=== PATIENT | female | born 1945 | race Caucasian/White ===

== ENCOUNTER 2019-07-27 11:12 | Inpatient (IN) | payer OTHER, MEDICAID ==
[~2019-07-27] VITALS: Ht 160.8 cm; Wt 86.2 kg
[2019-07-27 11:12] VITALS: BP_SYST 140
--- NOTE | 2019-07-27 11:12 | NUR ---
Placed in room 1 . Placed on hospital internship, blood pressure machine and pulse oximeter. To gown for exam. Side rails up.
--- NOTE | 2019-07-27 11:13 | NUR ---
Patient was brought in via EMS. Patient called 911 from home due to SOB. Patient states it is hard to breath, she came in on NRB mask. Patient states that she has had a cold x2 weeks.
--- NOTE | 2019-07-27 11:15 | NUR ---
KRISTA Bermudez at bedside examining patient.
[2019-07-27 12:19] LABS: BASOPHILS % (AUTO) 0.7 % (0.0-2.0); EOSINOPHILS # (AUTO) 0.2 K/uL (0.0-0.4); HEMATOCRIT 32.7 % (36-48); HEMOGLOBIN 10.8 g/dL (12.0-16.0); LYMPHOCYTES # (AUTO) 0.6 K/uL (1.0-5.5); LYMPHOCYTES % (AUTO) 8.6 % (20.5-51.5); MEAN CORPUSCULAR HEMOGLOBIN 31 pg (27-31); MEAN CORPUSCULAR HGB CONC 33 % (32-36); MEAN CORPUSCULAR VOLUME 96 fL (79.0-98.0); MONOCYTES # (AUTO) 0.3 K/uL (0.0-1.0); MONOCYTES % (AUTO) 4.1 % (1.7-9.3); NEUTROPHILS # (AUTO) 6.1 K/uL (1.8-7.7); NEUTROPHILS % (AUTO) 83.6 % (40.0-70.0); PLATELET COUNT (AUTO) 162 K/uL (130-430); RED BLOOD CELL COUNT(AUTO) 3.43 MIL/uL (4.2-6.2); RED CELL DISTRIBUTION WIDTH 16.4 % (9.0-15.0); WHITE BLOOD COUNT (AUTO) 7.2 K/uL (4.8-10.8)
[2019-07-27 12:32] LABS: ANION GAP 9 (5-15); CALCIUM 8.7 mg/dL (8.4-11.0); CHLORIDE 101 mmol/L (98-107); CREATININE 5.14 mg/dL (0.55-1.30); GLUCOSE 136 mg/dL (70-99); POTASSIUM 4.9 mmol/L (3.5-5.1); SODIUM SERUM 138 mmol/L (136-145); UREA NITROGEN, BLOOD 88 mg/dL (8-21)
[2019-07-27 12:40] LABS: ALANINE AMINOTRANSFERASE 31 U/L (12-78); ALBUMIN 3.3 g/dL (3.4-4.8); ASPARTATE AMINOTRANSFERASE 33 U/L (10-37); TOTAL BILIRUBIN 0.5 mg/dL (0.0-1.0)
[2019-07-27 12:45] LABS: INR 1.2 (0.8-1.2); PROTHROMBIN TIME 11.8 SECS (9.5-12.5)
--- NOTE | 2019-07-27 12:56 | NUR ---
Durga starks in [facility] - 07/27/19 at 1256 by YARELINPAUL Unable to obtain medication list.
--- NOTE | 2019-07-27 12:57 | NUR ---
Unable to obtain medication list.
[2019-07-27 13:24] LABS: BILIRUBIN,URINE NEGATIVE (NEGATIVE); BLOOD, URINE 1+ (NEGATIVE); CLARITY/URINE CLEAR (CLEAR); COLOR,URINE YELLOW (YELLOW); GLUCOSE,URINE NEGATIVE (NEGATIVE); KETONES,URINE NEGATIVE (NEGATIVE); LEUKOCYTE ESTERASE ,URINE NEGATIVE (NEGATIVE); NITRITE, URINE NEGATIVE (NEGATIVE); PH,URINE 6.5 (5.0-8.0); PROTEIN URINE 2+ (NEGATIVE); UROBILINOGEN,URINE 0.2 (0.2-1.0)
[2019-07-27 13:30] LABS: BACTERIA,URINE RARE /HPF (None Seen); MUCUS,URINE 1+ /LPF (None Seen); RBC,URINE 0-3 /HPF (0-3); WBC,URINE 0-3 /HPF (0-3)
--- NOTE | 2019-07-27 15:03 | NUR ---
Patient will be admitted to care of Dr. Ramesh. Admitted to telemetry unit. Will go to room 102B. Belongings list completed. Complete and up to date summary report printed. SBAR report to be given at bedside with opportunity for questions.
--- NOTE | 2019-07-27 15:10 | NUR ---
Transfer to [facility] via ACLS protocol. Licensed nurse present. IV present no signs or symptoms of infiltration.
[2019-07-27 15:16] VITALS: BP_SYST 164
--- NOTE | 2019-07-27 15:16 | NUR ---
ADMISSION: Received from ER on a gurney with the diagnosis of Pulmonary Edema. Patient is oriented x4. Ambulatory with steady gait with SOB on exertion. Oriented to room. Call light within reach.
--- NOTE | 2019-07-27 15:57 | NUR ---
INITIAL NOTES: RECEIVED REPORT FROM RAQUEL RESOURCE NURSE.PATIENT ON THE BED,AWAKE,ALERT AND ORIENTED X4. WITH O2 3L/NC.LEFT AV SHUNT.RIGHT HAND IV SALINE KORI IN PLACE. ORIENTED TO CALL LIGHT. BED LOCKED AT LOWEST POSITION. INITIAL ASSESSMENT DONE. NOT IN ANY RESPIRATORY DISTRESS.TELEMETRY SINUS RHYTHM.
--- NOTE | 2019-07-27 16:10 | NUR ---
CONSULTATION PAGED/CALLED Reason for Consultation: HD Person Who was Notified: EXCHANGE Consulting Physician: Beekeeper Farmer Specialty: Ordering Physician:
--- NOTE | 2019-07-27 16:18 | NUR ---
LYNETTE CALLED BACK: SPOKE WITH DR WARREN WITH ORDERS FOR HD NOW THEN CARRERA TO CALL FOR ORDERS.
--- NOTE | 2019-07-27 18:35 | NUR ---
END OF SHIFT: PATIENT COMFORTABLE THIS TIME. STILL ON O2 3L/NC,GOOD SATURATION. DNR. CALL LIGHT WITH IN REACH. BED LOCKED AT LOWEST POSITION. SAFETY MEASURES RENDERED. HD ORDER COPY GIVEN TO MUSIC THERAPY SPECIALIST.WAITING FOR DIALYSIS NURSE TO COME. NOT IN ANY DISTRESS.
--- NOTE | 2019-07-27 19:30 | NUR ---
Opening note Received patient, resting in bed, awake, AOX4. Nonlabored breathing on 3L NC. IV is SL to right hand. Side rails up 2x, bed is locked in lowest position. She refused bed alarm and states she ambulates to restroom with her walker without assistance. She demonstrates use of call light. Updated board and reviewed plan of care.
[2019-07-27 20:00] VITALS: BP_SYST 139
[2019-07-27] MEDS ORDERED: ALBUTEROL SULFATE 0.083% 2.5 MG/3 ML VIAL.NEB INH PRN (20:00)
[2019-07-27] MEDS ORDERED: IPRATROPIUM BROM 0.5 MG/2.5 ML VIAL.NEB (ATROVENT) INH PRN (20:00)
[2019-07-27] MEDS ORDERED: INSULIN REGULAR, HUMAN 100 UNITS/ML, 10 ML VIAL (humuLIN R) SUBCUT PRN (20:00)
[2019-07-27] MEDS ORDERED: DEXTROSE 50% JECT 50 ML DISP.SYRIN IVP PRN (20:00)
--- NOTE | 2019-07-27 20:03 | NUR ---
Hemodialysis HD nurse arrived and is setting up patient for HD.
[2019-07-27 20:58] VITALS: BP_SYST 164
--- NOTE | 2019-07-27 22:11 | NUR ---
RN rounds HD in progress; HD nurse reports patient is tolerating. Fingerstick BG test done w/ result of 130 mg/dL; no coverage due. Will continue to monitor.
--- NOTE | 2019-07-27 23:24 | NUR ---
HD complete Received report from FRED Alexander. 2L out. Presently v/s are B/P 164/70 HR 76, SpO2 98% on 3.5L oxygen. Addendum: 07/28/19 at 0114 by Keke Rhodes RN correction on entry above: 3L out, not 2L as written above.
[2019-07-27] MEDS: IPRATROPIUM BROM 0.5 MG/2.5 ML VIAL.NEB (ATROVENT) INH SCH (23:30)
[2019-07-27] MEDS: ALBUTEROL SULFATE 0.083% 2.5 MG/3 ML VIAL.NEB INH SCH (23:30)
--- NOTE | 2019-07-28 00:04 | NUR ---
Fingerstick BGT Fingerstick BG test done w/ result of 80 mg/dL; no coverage due. Patient provided with snack; 2 packs of jitendra crackers and no sugar gelatin. Will continue to monitor.
[2019-07-28 00:15] VITALS: BP_SYST 159
--- NOTE | 2019-07-28 01:42 | NUR ---
Breathing treatment Patient is sitting on chair at bedside and said she can breath better if she sits upright. I let her know she has breathing treatments and called the RT. Rt at bedside with patient for breathing treatment.
--- NOTE | 2019-07-28 04:00 | NUR ---
Resting Patient resting w/ eyes closed. Symmetrical rise and fall of chest nonlabored breathing. Call light w/in reach.
[2019-07-28 05:15] VITALS: BP_SYST 147
--- NOTE | 2019-07-28 05:35 | NUR ---
Fingerstick BGT Fingerstick BG test done w/ result of 95 mg/dL; no coverage due. Daily weight taken. Patient has no further needs. Call light w/in reach. Will continue to monitor.
--- NOTE | 2019-07-28 07:35 | NUR ---
closing note Endorsed report. Patient resting in comfortable position, no s/sx of distress. Nonlabored breathing on 3.5L NC. Presently denies pain.
[2019-07-28 08:00] VITALS: BP_SYST 144
[2019-07-28] MEDS: IPRATROPIUM BROM 0.5 MG/2.5 ML VIAL.NEB (ATROVENT) INH SCH ×3 (08:21→19:50)
[2019-07-28] MEDS: ALBUTEROL SULFATE 0.083% 2.5 MG/3 ML VIAL.NEB INH SCH ×3 (08:21→19:50)
--- NOTE | 2019-07-28 10:00 | NUR ---
patient unable to provide home meds list. refer me to call [phone] [facility] Pharmacist Char and get list of meds patient had in July 16, 2019. I spoke to Char on phone and list of home meds obtained. i entered to med reconciliation. I spoke to PMD Dr. Pickett at 10:15. Dr. Pickett said he will review them.
[2019-07-28] MEDS ORDERED: [UNRECOGNIZED DRUG - CODE] (10:01)
[2019-07-28] MEDS ORDERED: FOLI0.8T41 PO (10:01)
[2019-07-28] MEDS ORDERED: VERA120C2 PO (10:01)
[2019-07-28] MEDS ORDERED: ROSU10TA2 PO (10:01)
[2019-07-28] MEDS ORDERED: FAMO20TA8 PO (10:01)
[2019-07-28] MEDS ORDERED: PRO20 PO (10:01)
[2019-07-28] MEDS ORDERED: APIX2.5T PO (10:01)
[2019-07-28 12:00] VITALS: BP_SYST 130
--- NOTE | 2019-07-28 13:29 | NUR ---
Cardiac consult called: for Dr. Bishop, regarding CHF, ordered by Dr. Ramesh, spoke with
--- NOTE | 2019-07-28 14:00 | NUR ---
EF:20-25%, DIOR NEVAREZ NOTIFIED AT 13:45 , TO OBTAINED CARDIOLOGY VIANCA NEVAREZ. PATIENT WAS INFORMED.
--- NOTE | 2019-07-28 19:30 | NUR ---
Opening note Received patient, sitting in chair, awake, AOX4. Nonlabored breathing on 2L NC. IV is SL to right hand. Side rails up 2x, bed is locked in lowest position. She refused bed alarm and demonstrates use of call light. Updated board and reviewed plan of care.
[2019-07-28 20:00] VITALS: BP_SYST 144
--- NOTE | 2019-07-28 21:51 | NUR ---
Dr. Garrett S/W Dr. Garrett and informed patient medication list has been updated and she has not received her medications; not reconciled. She has not taken blood pressure meds. She asked what is blood pressure and I informed 144/80 and she said don't worry about it.
--- NOTE | 2019-07-28 22:30 | NUR ---
RN rounds Patient resting in bed, no s/sx of distress. She is watching t.v. Nonlabored breathing.
--- NOTE | 2019-07-28 23:09 | NUR ---
Assumed nursing care of pt from nurse Davies.
--- NOTE | 2019-07-28 23:14 | NUR ---
SBAR report Enorsed care and gave SBAR report to FRED Alvarez
[2019-07-28 23:50] VITALS: BP_SYST 122
--- NOTE | 2019-07-29 01:22 | NUR ---
Accucheck 94. Skin warm and dry to touch. Pt declines snacks. Fall and safety precautions are in place.
--- NOTE | 2019-07-29 03:00 | NUR ---
Pt is sleeping without any respiratory distress noted. Fall and safety precautions are in place.
--- NOTE | 2019-07-29 05:00 | NUR ---
Pt is awake and sitting up in a chair at the bedside. Pt stated she took a long nap in the afternoon. No c/o pain or discomfort.
--- NOTE | 2019-07-29 06:25 | NUR ---
All pt's needs were attended to. Pt is resting quietly in bed. Accucheck 99 this AM and no Insulin coverage needed. Skin remains warm and dry to touch. Saline lock in right hand is without any signs of infiltration. Fall and safety precautions are in place. Will endorse to day shift nurse.
[2019-07-29] MEDS: ALBUTEROL SULFATE 0.083% 2.5 MG/3 ML VIAL.NEB INH SCH ×3 (07:36→14:54)
[2019-07-29] MEDS: IPRATROPIUM BROM 0.5 MG/2.5 ML VIAL.NEB (ATROVENT) INH SCH ×5 (07:37→23:40)
[2019-07-29 08:00] VITALS: BP_SYST 159
--- NOTE | 2019-07-29 09:00 | NUR ---
HD START 0800 THIS MORNING/
[2019-07-29] MEDS ORDERED: APIXABAN 2.5 MG TABLET PO ONE (09:30)
[2019-07-29] MEDS ORDERED: FLUoxetine HCL 20 MG CAPSULE (PROzac) PO ONE (09:30)
[2019-07-29] MEDS ORDERED: VERAPAMIL HCL 120 MG TABLET.SA PO ONE (09:30)
[2019-07-29] MEDS ORDERED: NEPHROVITE, (FOLIC ACID/VITAMIN B COMP W-C 1 TAB) PO ONE (09:30)
--- NOTE | 2019-07-29 10:33 | NUR ---
Nutrition Update Harjinder Scale 18 noted. Pt admitted for pulmonary edema. Diet: renal BMI: 33.7 kg/m2 RD to follow per nutrition care standards.
[2019-07-29 12:00] VITALS: BP_SYST 158
--- NOTE | 2019-07-29 15:27 | NUR ---
Dietitian Recommendations * Recommend renal, [facility] JAYA, RD Please refer to Nutrition Assessment for details. Addendum: 07/29/19 at [address] Amended: Links added.
--- NOTE | 2019-07-29 19:30 | NUR ---
Opening notes Received report. Patient is sitting in chair eating dinner. No signs of distress noted. Breathing even and unlabored. IV patent and intact, no signs of infiltration noted. CHARITO AV shunt noted. No needs at this time. Informed patient to call for help when she wants to get back into bed. Call light with the patient. Safety precautions in place.
[2019-07-29] MEDS: LevALBUTEROL HCL 1.25 MG/0.5 ML *CONC.* VIAL.NEB (XOPENEX CONC.) INH SCH ×2 (20:24→23:00)
[2019-07-29] MEDS: VERAPAMIL HCL 120 MG TABLET.SA PO SCH (21:50)
[2019-07-29 21:51] VITALS: BP_SYST 128
[2019-07-29] MEDS: APIXABAN 2.5 MG TABLET PO SCH (21:51)
--- NOTE | 2019-07-29 21:55 | NUR ---
Medications given. Educated the action and side effects of medications. Patient verbalized understanding and tolerated well. No other needs at this time. Call light with the patient. Safety precautions in place.
[2019-07-29 23:53] VITALS: BP_SYST 139
--- NOTE | 2019-07-30 | NUR ---
Accucheck 107 No insulin coverage necessary. Provided patient with blanket. No other needs. Call light with the patient. Safety precautions in place.
--- NOTE | 2019-07-30 02:09 | NUR ---
Sleeping No signs of distress noted. Breathing even and unlabored. No needs. Call light with the patient. Safety precautions in place.
[2019-07-30] MEDS: LevALBUTEROL HCL 1.25 MG/0.5 ML *CONC.* VIAL.NEB (XOPENEX CONC.) INH SCH ×2 (03:00→08:11)
[2019-07-30] MEDS: IPRATROPIUM BROM 0.5 MG/2.5 ML VIAL.NEB (ATROVENT) INH SCH ×2 (03:00→08:11)
--- NOTE | 2019-07-30 04:00 | NUR ---
Resting Patient sitting in chair watching TV. No signs of distress noted. Breathing even and unlabored. Informed patient to call for help when ready to get back into bed. Call light with the patient. Safety precautions in place.
--- NOTE | 2019-07-30 04:10 | NUR ---
BT INITIATION: 3rd Unit Consent signed per patient agreeing to administration of blood. Blood has been type and crossmatched. Blood sent from blood bank. Information on unit of blood checked against patient wristband at bedside by two nurses. All information matches. Patient or responsible libertarian informed of potential complications associated with blood transfusion. Informed of possible transfusion reaction symptoms. Aware of need to notify nurse at once of itching, shortness of breath, flushing, feeling of impending doom, or other symptoms not previously present. Vital signs taken within 5 minutes prior to initiation of transfusion. RN will remain with patient for first 15 minutes of transfusion at which time vital signs will be re-assessed. Addendum: 07/30/19 at 0413 by Amna Wright RN WRONG PATIENT, PLEASE DISREGARD.
--- NOTE | 2019-07-30 06:29 | NUR ---
Closing notes Patient is sitting in chair. No signs of distress noted. Breathing even and unlabored. IV patent and intact, no signs of infiltration noted. CHARITO AV shunt in place. Accucheck 117. No insulin necessary. All needs met throughout the shift. Call light with the patient. Safety precautions in place. Will endorse care to day shift RN.
[2019-07-30 07:51] VITALS: BP_SYST 136
[2019-07-30] MEDS: APIXABAN 2.5 MG TABLET PO SCH (08:07)
[2019-07-30] MEDS: VERAPAMIL HCL 120 MG TABLET.SA PO SCH (08:08)
[2019-07-30] MEDS ORDERED: ATORVASTATIN 20 MG TABLET PO SCH (09:00)
[2019-07-30] MEDS ORDERED: FLUoxetine HCL 20 MG CAPSULE (PROzac) PO SCH (09:00)
[2019-07-30] MEDS ORDERED: FAMOTIDINE 20 MG TABLET PO SCH (09:00)
[2019-07-30] MEDS ORDERED: NEPHROVITE, (FOLIC ACID/VITAMIN B COMP W-C 1 TAB) PO SCH (09:00)
--- NOTE | 2019-07-30 09:20 | NUR ---
Seen and examined by Dr. Patterson no shortness of breath oxygen saturation on room 95% , with clearance to discharge home today.
[2019-07-30 09:40] VITALS: BP_SYST 128
--- NOTE | 2019-07-30 10:30 | NUR ---
D/C Patient Patient given medication reconciliation form and D/C instructions. Exit Care provided. Patient verbalized understanding. MD discussed with patient the results and treatment provided. Ambulatory with FWW gait for discharge to home. Patient in stable condition, ID band removed. IV catheter removed, intact and dressing applied, no active bleeding. All belongings sent with patient.
--- NOTE | 2019-07-30 12:30 | NUR ---
Discharged home via taxi provided by the hospital , with all the belongings take.
== END 2019-07-30 12:30 | disposition home or self-care (01) | DRG 291 ==
LOC: SED 11:12 → STU 14:00 → UNDODISIN 07-30 10:30
PROVIDERS: ADMIT Internal Medicine Hospice and Palliative Medicine; ATTEND Internal Medicine Hospice and Palliative Medicine
PROC: 5A1D70Z Performance of Urinary Filtration, Intermittent, Less than 6 Hours Per Day (ICD-10-PCS; principal; 2019-07-27)
PROC: 5A1D70Z Performance of Urinary Filtration, Intermittent, Less than 6 Hours Per Day (ICD-10-PCS; 2019-07-29)
DX: I13.2 Hypertensive heart and chronic kidney disease with heart failure and with stage 5 chronic kidney disease, or end stage renal disease (principal); N18.6 End stage renal disease; I50.23 Acute on chronic systolic (congestive) heart failure; E87.70 Fluid overload, unspecified; E66.9 Obesity, unspecified; E78.5 Hyperlipidemia, unspecified; E11.22 Type 2 diabetes mellitus with diabetic chronic kidney disease; Z96.659 Presence of unspecified artificial knee joint; Z60.2 Problems related to living alone; R09.02 Hypoxemia; D64.9 Anemia, unspecified; I08.1 Rheumatic disorders of both mitral and tricuspid valves; Z91.19 Patient's noncompliance with other medical treatment and regimen; Z91.15 Patient's noncompliance with renal dialysis; Z99.2 Dependence on renal dialysis; Z85.038 Personal history of other malignant neoplasm of large intestine; Z90.710 Acquired absence of both cervix and uterus; Z68.33 Body mass index [BMI] 33.0-33.9, adult; Z79.899 Other long term (current) drug therapy
CPT/HCPCS: 36415; 36600; 71045; 80053; 81000-TC; 82803-TC; 82962; 83605; 83880; 84484; 85025; 85610-TC; 85730-TC; 86710; 87040-TC; 87081; 87086; 90935; 90937; 93005; 93306; 94640; 94760; 99285; G0378; J1815; J7030; J7612; J7613

== ENCOUNTER 2019-09-02 21:21 | Inpatient (IN) | payer OTHER, MEDICAID ==
[~2019-09-02] VITALS: Ht 160 cm; Wt 83.0 kg
[~2019-09-02 21:21] MED LIST: APIX2.5T PO; FAMO20TA8 PO; FOLI0.8T41 PO; PRO20 PO; ROSU10TA2 PO; VERA120C2 PO; [UNRECOGNIZED DRUG - CODE]
[2019-09-02 21:25] VITALS: BP_SYST 151
--- NOTE | 2019-09-02 22:19 | NUR ---
Placed in room 6 . Placed on monitoring coordinator, blood pressure machine and pulse oximeter. To gown for exam. Side rails up. Report given to CIRA IBARRA.
[2019-09-02 22:32] LABS: BASOPHILS # (AUTO) 0.1 K/uL (0.0-0.2); BASOPHILS % (AUTO) 1.1 % (0.0-2.0); EOSINOPHILS # (AUTO) 0.1 K/uL (0.0-0.4); EOSINOPHILS % (AUTO) 2.1 % (0.0-4.0); HEMATOCRIT 30.7 % (36-48); HEMOGLOBIN 10.1 g/dL (12.0-16.0); LYMPHOCYTES # (AUTO) 0.7 K/uL (1.0-5.5); LYMPHOCYTES % (AUTO) 13.7 % (20.5-51.5); MEAN CORPUSCULAR HEMOGLOBIN 31 pg (27-31); MEAN CORPUSCULAR HGB CONC 33 % (32-36); MEAN CORPUSCULAR VOLUME 96 fL (79.0-98.0); MONOCYTES # (AUTO) 0.5 K/uL (0.0-1.0); MONOCYTES % (AUTO) 8.5 % (1.7-9.3); NEUTROPHILS # (AUTO) 4.1 K/uL (1.8-7.7); NEUTROPHILS % (AUTO) 74.6 % (40.0-70.0); PLATELET COUNT (AUTO) 102 K/uL (130-430); RED BLOOD CELL COUNT(AUTO) 3.21 MIL/uL (4.2-6.2); RED CELL DISTRIBUTION WIDTH 15.9 % (9.0-15.0); WHITE BLOOD COUNT (AUTO) 5.4 K/uL (4.8-10.8)
--- NOTE | 2019-09-02 22:33 | NUR ---
radiology at bedside.
[2019-09-02 22:42] LABS: ANION GAP 11 (5-15); CHLORIDE 105 mmol/L (98-107); CREATININE 4.41 mg/dL (0.55-1.30); GLUCOSE 133 mg/dL (70-99); POTASSIUM 5.2 mmol/L (3.5-5.1); SODIUM SERUM 137 mmol/L (136-145); UREA NITROGEN, BLOOD 75 mg/dL (8-21)
[2019-09-02 22:44] LABS: INR 1.2 (0.8-1.2); PROTHROMBIN TIME 11.6 SECS (9.5-12.5)
[2019-09-02 22:59] LABS: ALANINE AMINOTRANSFERASE 11 U/L (12-78); ALBUMIN 3.2 g/dL (3.4-4.8); ASPARTATE AMINOTRANSFERASE 15 U/L (10-37); TOTAL BILIRUBIN 0.5 mg/dL (0.0-1.0)
--- NOTE | 2019-09-02 23:05 | NUR ---
ER Dr. bragg at bedside examining patient.
--- NOTE | 2019-09-02 23:16 | NUR ---
Pt BIB EMS with c/o shortness of breath. Pt A&Ox4. Pt states SOB began yesterday but got worse today. Pt states nausea and 5 episodes of diarrhea. Pt states stool is light in color with no blood noted. Pt denies vomiting. Pt states lack of appetite began this morning. Pt states history of CKD. Pt states she has not had dialysis since August 12. Pt states she has not gone due to anxiety and does not like to go and sit in dialysis center for 4 hours. Pt states she gets anxious when she thinks about going for dialysis. Pt denies chest pain. Upon assessment, pt oxygen saturation on room air is 99% and pt has bilateral clear breath sounds with no use of accessory muscles. Pt has fistula left arm in left harm, thrill palpated and bruit auscultated. Will continue to monitor.
[2019-09-03] MEDS ORDERED: LACTINEX PO (01:11)
[2019-09-03] MEDS ORDERED: NYSCR30 TP (01:11)
[2019-09-03] MEDS ORDERED: RENA-VITE PO (01:11)
[2019-09-03] MEDS ORDERED: NEU100 PO (01:11)
[2019-09-03] MEDS ORDERED: FURO80TA86 PO (01:11)
[2019-09-03] MEDS ORDERED: ISOS60TA4 PO (01:11)
[2019-09-03] MEDS ORDERED: DOCU-144 PO (01:11)
[2019-09-03] MEDS ORDERED: FERROUS SULFATE PO (01:11)
--- NOTE | 2019-09-03 01:12 | NUR ---
Medication reconciliation completed with information provided by PT AT THE BEDSIDE. Any prior medication reconciliation on file was reviewed and corrected.
[2019-09-03] MEDS ORDERED: SODIUM POLYSTYRENE SULFONATE 15 GM/60 ML UDBTL PO ONE (01:15)
--- NOTE | 2019-09-03 01:20 | NUR ---
Patient will be admitted to care of DIOR. Admitted to TELEMETRY unit. Awaiting bed placement. Belongings list completed. Complete and up to date summary report printed. SBAR report to be given at bedside with opportunity for questions.
--- NOTE | 2019-09-03 01:47 | NUR ---
# 20 gauge angiocath placed to R AC. Use of asceptic technique. Opsite placed over site. Blood return noted. Flushed with 10 cc of normal saline. No evidence of infiltration noted. Patient tolerated well.
--- NOTE | 2019-09-03 02:18 | NUR ---
ADMISSION NOTE Received patient from ER via rrogers under the care of Dr Garrett. Patient admitted with diagnosis of Missed Dialysis and CHF . Patient is awake, alert, oriented X 4. Patient oriented to hospital room, call light, toileting, pain management and safety-teach back done. Patient informed that HER nurse will be Eloy IBARRA and that her room number is 107A. Call light within reach. Will continue to monitor patient condition.
[2019-09-03 02:36] VITALS: BP_SYST 168
[2019-09-03 03:41] VITALS: BP_SYST 143
--- NOTE | 2019-09-03 04:19 | NUR ---
ROUNDS/DR. BOLANOS AT BEDSIDE Patient in bed, watching TV, no signs of discomfort noted. Chest rise and fall even bilaterally. Patient denies pain or SOB. Call light with patient. Will continue to monitor. Dr. Bolanos at bedside, assessed patient.
[2019-09-03] MEDS ORDERED: HYDROcodone/ACETAMIN 10-325 MG TAB PO PRN (04:30)
[2019-09-03] MEDS ORDERED: ALBUTEROL SULFATE 0.083% 2.5 MG/3 ML VIAL.NEB INH PRN (04:30)
[2019-09-03] MEDS ORDERED: INSULIN LISPRO SLIDING SCALE 100 UNITS/ML VIAL (humaLOG) SUBCUT PRN (04:30)
[2019-09-03] MEDS ORDERED: HYDROcodone/ACETAMIN 5-325 MG TAB (NORCO/ VICODIN) PO PRN (04:30)
[2019-09-03] MEDS ORDERED: NYSTATIN 30 GM TOPICAL CREAM TP SCH (04:30)
[2019-09-03] MEDS: NORMAL SALINE 5 ML DISP.SYRIN IVF SCH ×3 (06:05→22:00)
[2019-09-03 06:27] VITALS: BP_SYST 168
--- NOTE | 2019-09-03 06:34 | NUR ---
CLOSING NOTES Patient sitting on a chair at bedside. No s/s of acute distress noted. Breathing even and unlabored. Patient denies pain or SOB. Skin warm and dry to touch, no s/s of hypoglycemia noted. IV site patent, no signs of infiltration or infection noted. All needs met throughout shift. Fall and safety precautions maintained throughout shift. Will continue to monitor until patient care is endorsed to oncoming dayshift nurse.
[2019-09-03 07:27] LABS: BASOPHILS % (AUTO) 0.7 % (0.0-2.0); EOSINOPHILS # (AUTO) 0.1 K/uL (0.0-0.4); EOSINOPHILS % (AUTO) 1.6 % (0.0-4.0); HEMATOCRIT 33.5 % (36-48); LYMPHOCYTES # (AUTO) 1.1 K/uL (1.0-5.5); LYMPHOCYTES % (AUTO) 15.3 % (20.5-51.5); MEAN CORPUSCULAR HEMOGLOBIN 31 pg (27-31); MEAN CORPUSCULAR HGB CONC 33 % (32-36); MEAN CORPUSCULAR VOLUME 95 fL (79.0-98.0); MONOCYTES # (AUTO) 0.6 K/uL (0.0-1.0); MONOCYTES % (AUTO) 8.1 % (1.7-9.3); NEUTROPHILS # (AUTO) 5.1 K/uL (1.8-7.7); NEUTROPHILS % (AUTO) 74.3 % (40.0-70.0); PLATELET COUNT (AUTO) 106 K/uL (130-430); RED BLOOD CELL COUNT(AUTO) 3.52 MIL/uL (4.2-6.2); RED CELL DISTRIBUTION WIDTH 15.9 % (9.0-15.0); WHITE BLOOD COUNT (AUTO) 6.9 K/uL (4.8-10.8)
[2019-09-03 07:41] LABS: ALANINE AMINOTRANSFERASE 9 U/L (12-78); ALBUMIN 3.4 g/dL (3.4-4.8); ANION GAP 11 (5-15); ASPARTATE AMINOTRANSFERASE 14 U/L (10-37); CALCIUM 9.1 mg/dL (8.4-11.0); CHLORIDE 105 mmol/L (98-107); CREATININE 4.31 mg/dL (0.55-1.30); GLUCOSE 95 mg/dL (70-99); SODIUM SERUM 138 mmol/L (136-145); TOTAL BILIRUBIN 0.6 mg/dL (0.0-1.0); UREA NITROGEN, BLOOD 76 mg/dL (8-21)
[2019-09-03 08:10] VITALS: BP_SYST 187
--- NOTE | 2019-09-03 08:10 | NUR ---
INITIAL ROUNDS Received pt AAOx4, no s/s resp distress, no c/o shortness of breath at this time, no c/o pain or discomfort. Plan of care for the day reviewed with pt-pt verbalized her understanding. Noted AV shunt to CHARITO. Pain management, disease process, skin and safety discussed-teach back done. Call light within reach.
[2019-09-03] MEDS: FLUoxetine HCL 20 MG CAPSULE (PROzac) PO SCH (08:46)
[2019-09-03] MEDS: VERAPAMIL HCL 120 MG TABLET.SA PO SCH ×3 (08:47→21:50)
[2019-09-03] MEDS: GABAPENTIN 100 MG CAPSULE PO SCH (08:47)
[2019-09-03] MEDS: FAMOTIDINE 20 MG TABLET PO SCH (08:47)
[2019-09-03] MEDS: FUROSEMIDE 80 MG TABLET PO SCH ×2 (08:48→21:00)
[2019-09-03] MEDS: DOCUSATE SODIUM 100 MG CAPSULE PO SCH ×2 (08:48→21:48)
[2019-09-03] MEDS: ISOSORBIDE MONONITRATE 30 MG TAB.ER.24H PO SCH (08:49)
[2019-09-03] MEDS: APIXABAN 2.5 MG TABLET PO SCH ×2 (08:55→21:48)
[2019-09-03] MEDS: ATORVASTATIN 20 MG TABLET PO SCH (08:59)
[2019-09-03] MEDS ORDERED: ROSUVASTATIN CALCIUM 5 MG/TAB (CRESTOR) PO SCH (09:00)
--- NOTE | 2019-09-03 10:24 | NUR ---
ROUNDS Pt sitting up in bedside chair with no s/s resp distress, no c/o pain or discomfort. Pt seen by Dr. Ramesh. Pt given fresh water and oral care items. Needs met, call light within reach.
[2019-09-03] MEDS ORDERED: ONDANSETRON HCL 4 MG/2 ML VIAL IVP PRN (12:45)
--- NOTE | 2019-09-03 12:59 | NUR ---
Cushion Former: met with pt . (HCP) , received a referral, pt . missed her Dialysis apt. ADMINISTRATIVE REPRESENTATIVE spoke to Barrie Hanson. She stated pt. is very sweet, stated she missed her Dialysis due to having the flu and not feeling well. Pt. expressed she lives alone and is lonely. She wants to live in a facility to have help for self and to feel less lonely and help not to feel depressed. ADMINISTRATIVE REPRESENTATIVE met with pt. She was talkative and willing to be interviewed. Pt. stated she missed her apt. because she was feeling sick from the flu. Pt. stated she is going to dialysis on , . and Sat. The last time she went was on 08/12/2019 She also stated, she has been taking prozac for about 10 years because she suffers from anxiety. She takes her meds daily and fills her prescription at [facility]. This was prescribed by Dr. Lozoya. Pt. stated she does not feel this medication works anymore. She did mention she also feels anxious in regards to going to Dialysis. She stated she has to take her walker because the chairs are really far. She said her friends "Are all old and dying" . This also makes her anxious. ADMINISTRATIVE REPRESENTATIVE asked pt. is she has felt suicidal. Pt. stated she feels like that all the time. The last time was last week. Pt. stated she feels if she does not go t dialysis, she will . She denied feeling she would do anything to take her own life. She admitted to feeling depressed. Pt. stated again she wants to live in a facility where she is not alone and depressed. ADMINISTRATIVE REPRESENTATIVE asked her to speak to Dr. Lozoya. Pt. stated she may see him today. She is to discuss with him her feelings of anxiousness and not wanting to live alone which makes her feel depressed. Pt. receives $1187 in Social Security. She has two nieces who check on her to make sure she is doing ok. Pt. felt she could speak to Dr. Lozoya to discuss her POC and her medication management. ADMINISTRATIVE REPRESENTATIVE checked in with Rn. Hanson and shared an update from the interview. Rn will share info with Dr. avina. pt. feeling anxious and depressed. ADMINISTRATIVE REPRESENTATIVE will remain available as needed.
[2019-09-03] MEDS ORDERED: ONDANSETRON HCL 4 MG/2 ML VIAL ONE (13:07)
[2019-09-03 16:45] VITALS: BP_SYST 123
--- NOTE | 2019-09-03 18:50 | NUR ---
CLOSING NOTE Pt resting quietly in bed with no s/s resp distress, no c/o pain or discomfort. Pt just completed Dialysis with 3L out per report from director regulatory affairs. All precautions remain in place. Needs met, call light within reach.
--- NOTE | 2019-09-03 19:30 | NUR ---
Received bedside report from am shift RN, Margie. Pt is a/a/o x 4, able to make needs known to staff. Resp even and unlabored with 0 SOB at this time. No c/o pain. No s/sx of acute distress, nausea or vomiting. Noted that patient is DNR status. Allergic to epinephrine. Pt is DM and has Accucheck ACHS. Pt is ambulatory with BRP. Pt recently finished HD with 3 L fluid removed. Will hold Lasix 80 mg at 2100 to avoid dehydration. LAV shunt is intact, no bleeding noted. SL RAC is uncomfortable, will remove and give new IV. Skin is intact. Pt is on Eliquis for anticoag therapy. Cont. to monitor, call light in easy reach. Pt knowns how to call nurse directly.
[2019-09-03 20:00] VITALS: BP_SYST 128
[2019-09-04] VITALS: BP_SYST 125
--- NOTE | 2019-09-04 | NUR ---
Pt is resting in bed at this time, no s/sx of acute distress. V/S/S. Blood sugar within normal limits at 2100. Pt had some complaints about IV site. Removed tape, cleaned area, flushed with NS. Site is patent. After cleaning, placed new Tegaderm. per patient, she is now comfortable. All needs met.
--- NOTE | 2019-09-04 04:00 | NUR ---
Pt is sleeping at this time. No s/sx acute distress.
[2019-09-04] MEDS: NORMAL SALINE 5 ML DISP.SYRIN IVF SCH (06:00)
[2019-09-04 06:52] LABS: BASOPHILS % (AUTO) 0.6 % (0.0-2.0); EOSINOPHILS # (AUTO) 0.1 K/uL (0.0-0.4); HEMATOCRIT 28.4 % (36-48); HEMOGLOBIN 9.6 g/dL (12.0-16.0); LYMPHOCYTES # (AUTO) 1.2 K/uL (1.0-5.5); LYMPHOCYTES % (AUTO) 19.8 % (20.5-51.5); MEAN CORPUSCULAR HEMOGLOBIN 32 pg (27-31); MEAN CORPUSCULAR HGB CONC 34 % (32-36); MEAN CORPUSCULAR VOLUME 94 fL (79.0-98.0); MONOCYTES # (AUTO) 0.7 K/uL (0.0-1.0); MONOCYTES % (AUTO) 10.7 % (1.7-9.3); NEUTROPHILS # (AUTO) 4.2 K/uL (1.8-7.7); NEUTROPHILS % (AUTO) 66.9 % (40.0-70.0); PLATELET COUNT (AUTO) 85 K/uL (130-430); RED BLOOD CELL COUNT(AUTO) 3.02 MIL/uL (4.2-6.2); RED CELL DISTRIBUTION WIDTH 15.9 % (9.0-15.0); WHITE BLOOD COUNT (AUTO) 6.3 K/uL (4.8-10.8)
--- NOTE | 2019-09-04 07:05 | NUR ---
Pt's b/s at 0651 - 76. No need for coverage. Pt will be eating breakfast shortly. Gave apple juice in case there is a delay. Gave report to am shift nurse for continuity of care. Pt rested comfortably throughout shift with no change of condition noted. All needs anticipated and met.
[2019-09-04 07:32] LABS: ALANINE AMINOTRANSFERASE 12 U/L (12-78); ALBUMIN 2.7 g/dL (3.4-4.8); ANION GAP 7 (5-15); ASPARTATE AMINOTRANSFERASE 20 U/L (10-37); CALCIUM 8.1 mg/dL (8.4-11.0); CHLORIDE 100 mmol/L (98-107); GLUCOSE 78 mg/dL (70-99); POTASSIUM 3.4 mmol/L (3.5-5.1); SODIUM SERUM 137 mmol/L (136-145); TOTAL BILIRUBIN 0.6 mg/dL (0.0-1.0); UREA NITROGEN, BLOOD 35 mg/dL (8-21)
[2019-09-04 08:00] VITALS: BP_SYST 110
[2019-09-04] MEDS: VERAPAMIL HCL 120 MG TABLET.SA PO SCH (09:00)
[2019-09-04] MEDS: FLUoxetine HCL 20 MG CAPSULE (PROzac) PO SCH (09:12)
[2019-09-04] MEDS: ISOSORBIDE MONONITRATE 30 MG TAB.ER.24H PO SCH (09:13)
[2019-09-04] MEDS: GABAPENTIN 100 MG CAPSULE PO SCH (09:13)
[2019-09-04] MEDS: DOCUSATE SODIUM 100 MG CAPSULE PO SCH (09:13)
[2019-09-04] MEDS: FAMOTIDINE 20 MG TABLET PO SCH (09:13)
[2019-09-04] MEDS: ATORVASTATIN 20 MG TABLET PO SCH (09:13)
[2019-09-04] MEDS: FUROSEMIDE 80 MG TABLET PO SCH (09:14)
[2019-09-04] MEDS: APIXABAN 2.5 MG TABLET PO SCH (09:17)
[2019-09-04] MEDS ORDERED: LIP20 PO (10:18)
[2019-09-04] MEDS ORDERED: ONDA4TAB5 PO (10:18)
--- NOTE | 2019-09-04 10:57 | NUR ---
patient received sitting on bed ,diet served and ate well, tolerated, medications given,verapamil dose held as the patient bp 110/49/ Dr Osborne is aware. . ordered hold blood pressure if SBP is is below 90. with orders for discharge and charge nurse informed that the patient is alone with niece.will need to talk to the patient insurance health car partner for the plan. patentis alert and orriented but unable to ambulated with limited mobility. will talk to Dr Osborne about it
--- NOTE | 2019-09-04 11:12 | NUR ---
charge nurse talked to Dr Osborne and patient can take care of herself, so she can be discharge, instructed to take blood pressure and hold if bp is low 100 SBP and below and recheck again, patient expressed understanding
--- NOTE | 2019-09-04 11:35 | NUR ---
nursing bar supervisor called that the patient ride is arrange to her address and home. patient is aware
[2019-09-04 11:46] VITALS: BP_SYST 102
[2019-09-04 11:51] VITALS: BP_SYST 102
--- NOTE | 2019-09-04 12:02 | NUR ---
IV CANNULA IS DISCONTINUED AND DRESSING APPLIED TO THE SITE, BLEEDING STOPPED , NO SIGNS OF INFECTION TO THE SITE NOTED. AWAITING FOR THE RIDE
--- NOTE | 2019-09-04 12:15 | NUR ---
discharge instruction given to the patient and expressed understaning .
--- NOTE | 2019-09-04 13:02 | NUR ---
patient discharge via wheelchair in stable condition with prescription and discharge instructions .patient expressed understanding ,will follow up with the primary care physician Addendum: 09/06/19 at 1330 by Gisella Galvez RN Patient stated to primary discharge nurse that she will make her own PCP appointment and did not want to make it here.
--- NOTE | 2019-09-07 16:07 | NUR ---
Discharge Follow Up Phone Call Phoned patient, , and left a voicemail message reminding patient to make a follow up appointment and offer of assistance along with Social Service contact information.
== END 2019-09-04 13:02 | disposition home or self-care (01) | DRG 291 ==
LOC: SED 21:21 → STU 09-03 01:18
PROVIDERS: ADMIT Internal Medicine Hospice and Palliative Medicine; ATTEND Internal Medicine Hospice and Palliative Medicine
PROC: 5A1D70Z Performance of Urinary Filtration, Intermittent, Less than 6 Hours Per Day (ICD-10-PCS; principal; 2019-09-03)
DX: I13.0 Hypertensive heart and chronic kidney disease with heart failure and stage 1 through stage 4 chronic kidney disease, or unspecified chronic kidney disease (principal); N18.6 End stage renal disease; I50.31 Acute diastolic (congestive) heart failure; E87.70 Fluid overload, unspecified; Z99.2 Dependence on renal dialysis; F41.9 Anxiety disorder, unspecified; E11.22 Type 2 diabetes mellitus with diabetic chronic kidney disease; E87.5 Hyperkalemia; J44.9 Chronic obstructive pulmonary disease, unspecified; Z83.3 Family history of diabetes mellitus; Z91.15 Patient's noncompliance with renal dialysis; Z91.19 Patient's noncompliance with other medical treatment and regimen; Z88.8 Allergy status to other drugs, medicaments and biological substances; Z79.899 Other long term (current) drug therapy
CPT/HCPCS: 36415; 71045; 80053; 82962; 83880; 84484; 85025; 85610-TC; 85730-TC; 87081; 90935; 93005; 99285; G0378; J2405